=== PATIENT | female | born 2000 | race Caucasian/White ===

== ENCOUNTER 2023-06-02 12:47 | Outpatient (CLI) | payer BC, SELFPAY ==
--- NOTE | 2023-06-02 13:00 | CRLHL7_ITS ---
For Patients: As a result of the Century Cures Act, medical imaging exams and procedure reports are released immediately into your electronic medical record. You may view this report before your referring provider. If you have questions, please contact your health care provider. Indication: Chronic sinusitis, nasal septum deviation Technique: CT of the paranasal sinuses without contrast. Coronal and sagittal reformatted images. Bone and soft tissue algorithms. Comparison: None. Findings: Frontal sinuses: Mild mucosal thickening in the right inferior frontal sinus. The left frontal sinus is clear.. Ethmoid air cells: The ethmoid air cells are clear. Symmetric depths of the olfactory fossa. The anterior ethmoidal arteries are well-covered by bone. Sphenoid sinuses: The sphenoid sinuses and ostia are clear. No optic canal or carotid canal dehiscence. Maxillary sinuses: Minimal polypoid mucosal thickening in the right maxillary sinus. The osteomeatal units are clear. Nasal cavity: Leftward deviation of the nasal septum with septal spur that contacts the left inferior turbinate. No babak bullosa. No paradoxical turbinates. Secretions or crusting noted in the nasal vestibule airway. Skullbase, maxilla, TMJ: No lytic or blastic osseous lesions. No periapical tooth lucencies. Mastoid air cells are clear. Orbital contents: Unremarkable Imaged intracranial contents: Unremarkable Imaged soft tissues structures: Unremarkable IMPRESSION: 1. Mild mucosal thickening in the right inferior frontal sinus. Minimal polypoid mucosal thickening in the right maxillary sinus. The ethmoid air cells and sphenoid sinuses are clear 2. Leftward deviation of the nasal septum with septal spur that contacts the left inferior turbinate. 3. Secretions or crusting noted in the nasal vestibule airway. Please note that all CT scans at this facility use dose modulation, iterative reconstruction, and/or weight-based dosing when appropriate to reduce radiation dose to as low as reasonably achievable. Dictated by Chan Cuevas MD @ 06/03/2023 3:41:16 PM (Electronically Signed)
== END 2023-06-02 12:48 | disposition home or self-care (01) ==
LOC: CT 12:49
PROVIDERS: Visit Provider Otolaryngology
DX: J32.9 Chronic sinusitis, unspecified (principal); J34.2 Deviated nasal septum; J32.0 Chronic maxillary sinusitis
CPT/HCPCS: 70486

== ENCOUNTER 2023-10-23 08:53 | Day surgery (SDC) | payer BC, SELFPAY ==
[2023-10-23] VITALS (14 sets, daily range): BP systolic 109–123; BP diastolic 63–89; PULSE 71–100; RESP 12–20; TEMP 36.4–36.9; O2SAT 97–100; BMI 23.6
--- OUTSIDE RECORDS SUMMARY | 2023-10-23 08:56 | XMS_ITS | Clinical Summary ---
Author Name Unknown Organization [facility] Address [address] [place] [address] Care Team Providers Care Independent Crop Consultant Name Role Phone [facility] Primary Ca re Provider Allergies Active Allergy Reactions Criticality Noted Date Comments Penicillins Rash Low 11/28/2019 Medications Hospital, Clinic, or Other Facility Administered Medication Ordered Dose Route Frequency Start Date End Date Status medroxyPROGESTERone (DEPO-PROVERA) injection 150 mgIndications:Depo-Prove ra contraceptive status 150 mg IM EVERY 3 MONTHS 02/08/2020 Active Active Problems Problem Noted Date Diagnosed Date Nexplanon removal 02/08/2020 Depo-Provera contraceptive status 02/08/2020 Family history of blood clots 02/08/2020 Recurrent AOM (acute otitis media) 07/19/2015 Eczema 09/29/2014 Resolved Problems Problem Noted Date Diagnosed Date Resolved Date Infective otitis externa 01/23/201409/2015 Overview: Problem list name updated by automated process. Provider to review Routine infant or child health check 03/25/2006 07/19/2015 Immunizations Name Administration Dates Next Due Comvax (HIB/HepB) 2002,2002 DTAP (<7y) 08/03/2007, 3,2002,2001 DTP-Hib 06/19/2003 HIB (PRP-T) 2002 HPV9 05/20/2017,11/14/2016 HepB 2002 Influenza Vaccine >6 months,quad, PF 07/05/2018 MMR 08/03/2007,03/20/2003 Meningococcal ACWY (Menactra??) 02/08/2020,12/30 Pneumococcal (PCV 7) 2002,2002,05/11 Poliovirus, inactivated (IPV) 08/03/2007 ,03/20/2003,2002,2001 TDAP Vaccine (Adacel) 12/30/2013 Varicella 08/03/2007,06/19/2003 Family History Medical History Relation Comments Family History Negative Father Circulatory Maternal Grandfather Blood Clot Hypertension Maternal Grandfather Circulatory Mother Blood Clot 2007 Depression Mother Relation Status Comments Brother Alive Father Alive Maternal Grandfather Alive Maternal Grandmother Alive Mother Alive Paternal Grandfather Alive Paternal Grandmother Alive Social History Tobacco Use Types Packs/Day Years Used Date Smoking Tobacco: Never Smokeless Tobacco: Never Alcohol Use Standard Drinks/Week Comments No 0 (1 standard drink = 0.6 oz pur e alcohol) PHQ-2 Answer Date Recorded PHQ-2 Score 0 02/08/2020 Adolescent Education Answer Date Record ed Getting School Help Needed Not on file 03/31 Sex and Gender Information Value Date Recorded Sex Assigned at Not on file Gender Identity Not on file Sexual Orientation Not on file Last Filed Vital Signs Vital Sign Reading Time Taken Comments Blood Pressure 118/86 02/08/2020 2:52 PM CDT Pulse 90 02/08/2020 2:52 PM CDT Temperature 36.7 ??C (98 ??F) 02/08/2020 2:52 PM CDT Respiratory Rate 12 02/08/2020 2:52 PM CDT Oxygen Saturation 99% 10/19/2018 3:48 PM CDT Inhaled Oxygen Concentration - - Weight 51.3 kg (113 lb) 02/08/2020 2:52 PM CDT Height 164.5 cm (5' 4.75) 10/19/2018 3:48 PM CD T Body Mass Index 18.95 10/19/2018 3:48 PM CDT Plan of Treatment Not on file Care Teams Independent Crop Consultant Relationship Specialty Start Date End Date [facility] [address] [place] [address] PCP - General 05/12/17
--- OUTSIDE RECORDS SUMMARY | 2023-10-23 08:56 | XMS_ITS | Encounter Summary ---
Author Name Unknown Organization [facility] Address [address] [place] [address] Care Team Providers Care Program Supervisor Name Role Phone Kar Amezquita MD Primary Car e Provider [facility] Primary Ca re Provider Laxmi Al Mary PA-C Unavailable Laxmi Al Mary PA-C Unavailable Misty Leblanc APRN [employer] Unavailable + Laxmi Al Mary PA-C Unavailable Cirilo Ortiz PA-C Unavailable + Mega Colin MD Unavailable + Cirilo Ortiz PA-C Unavailable + Dayanna Maria APRN [employer] Unavailable Unavail able Cirilo Ortiz PA-C Unavailable + Dayanna Maria APRN [employer] Unavailable Unavail able Cirilo Ortiz PA-C Unavailable + Cirilo Ortiz PA-C Unavailable + Dayanna Maria APRN, CNP Unavailable Unavail able Reason for Visit * Reason Onset Date Comments Outreach 10/07/2012 Encounter Details Date Type Department Care Team (Late st Contact Info) Description 10/07/2012 Telephone [facility] [address] [place] [address] Kar Amezquita MD [facility] [address] [place] [address] Outreach Social History Tobacco Use Types Packs/Day Years Used Date Smoking Tobacco: Never Smokeless Tobacco: Never Alcohol Use Standard Drinks/Week Comments No 0 (1 standard drink = 0.6 oz pur e alcohol) Sex and Gender Information Value Date Recorded Sex Assigned at Not on file Gender Identity Not on file Sexual Orientation Not on file documented as of this encounter Miscellaneous Notes * Telephone Encounter - Herbie Barrera - 11/01/2012 5:19 PM CDT 11/01/2012 Call Regarding Reattribution [facility] Attempt 2 Message on answering machine Comments: * Telephone Encounter - Usha Ayala - 10/07/2012 2:22 PM CDT 10/07/2012 Call Regarding ReattributionWCC Attempt 1 Message on answering machine Comments: documented in this encounter Plan of Treatment Not on file documented as of this encounter Visit Diagnoses Not on filedocumented in this encounter Care Teams Program Supervisor Relationship Specialty Start Date End Date Kar Amezquita MD [facility] [address] [place] [address] PCP - General 02 08/10/16 [facility] [address] [place] [address] PCP - General 05/12/17 Laxmi Al PA-C [address] [address] [facility] [place] [address] PCP - Assigned PCP 11/23/16 08/17/18 Laxmi Al PA-C [address] [place] [address] Assigned PCP 11/23/16 10/23/18 Misty Leblanc APRN [employer] [address] [place] [address] Assigned PCP 10/24/18 10/22/19 Laxmi Al PA-C [address] [place] [address] Assigned PCP 10/23/19 10/29/19 Cirilo Ortiz PA-C [address] [place] [address] Assigned PCP 10/30/19 12/03/19 [place] [address] [place] [address] Assigned PCP 12/04/19 02/04/20 Cirilo Ortiz PA-C [address] [place] [address] Assigned PCP 02/05/20 10/20/20 Dayanna Maria APRN [employer] Assigned PCP 10/21/20 02/09/21 Cirilo Ortiz PA-C [address] [place] [address] Assigned PCP 02/10/21 06/22/21 Dayanna Maria APRN [employer] Assigned PCP 06/23/21 08/10/21 Cirilo Ortiz PA-C [address] [place] [address] Assigned PCP 08/11/21 05/30/22 Cirilo Ortiz PA-C [address] [place] [address] Assigned PCP 08/09/22 10/24/22 Dayanna Maria APRN [employer] Assigned PCP 10/25/22 02/13/23 documented as of this encounter
--- OUTSIDE RECORDS SUMMARY | 2023-10-23 08:56 | XMS_ITS | Referral Summary ---
Author Name Unknown Organization [facility] Address [address] [place] [address] Care Team Providers Care Human Factors Specialist Name Role Phone [facility] - [facility] Primary Ca re Provider Allergies Active Allergy [...] ,03/20/2003,2002,2001 TDAP Vaccine (Adacel) 12/30/2013 Varicella 08/03/2007,06/19/2003 Social History Tobacco Use Types Packs/Day Years [...] of Treatment Not on file Care Teams Human Factors Specialist Relationship Specialty Start Date End Date [facility] [address] [place] [address] PCP - General 05/12/17
[2023-10-23 09:37] LABS: Ur HCG Qualitative* Negative (Negative)
[2023-10-23] MEDS: SODIUM CHLORIDE 0.9 % (FLUSH) 10 ML SYRINGE IVF (09:45)
[2023-10-23] MEDS: LACTATED RINGERS 1000 ML 1,000 ML 100 ML IV (09:45)
[2023-10-23] MEDS: BUPIVACAINE 0.5 %/EPI 1:200K 30 ML INJECTION (11:00)
[2023-10-23] MEDS: MUPIROCIN 1 GM PACKET 1 APPLIC TOPICAL (11:00)
[2023-10-23] MEDS: COCAINE HCL 4 % 4 ML SOLUTION NOSTRIL-B (11:00)
[2023-10-23] MEDS: AYR SALINE NASAL GEL 1 APPLIC NOSTRIL-B (11:02)
--- NOTE | 2023-10-23 11:02 | W.ANESCHARGE ---
Anesthesia Charges Start Date/Time Anesthesia Start Date: 10/23/23 Anesthesia Start Time: 10:47 Stop Date/Time Anesthesia Stop Date: 10/23/23 Anesthesia Stop Time: 11:40
--- NOTE | 2023-10-23 11:57 | W.ANESCHARGE ---
Anesthesia Charges Start Date/Time Anesthesia Start Date: 10/23/23 Anesthesia Start Time: 10:47 Stop Date/Time Anesthesia Stop Date: 10/23/23 Anesthesia Stop Time: 11:40
--- NOTE | 2023-10-23 12:16 | W.PM.ENTPROC ---
Procedure Note Date of procedure: 10/23/23 Procedure: Preop diagnosis deviated septum, nasal headache, right middle turbinate babak bullosa, right inferior turbinate hypertrophy, nasal obstruction Postop diagnosis same Procedure nasal septoplasty, submucous partial resection right inferior turbinate, endoscopic partial resection right middle turbinate babak bullosa Under general trach anesthesia patient was prepped draped usual fashion the nose injected and decongested. A right hemitransfixion incision was made. Left anterior and posterior tunnels were created. A vertical incision is made through the cartilage and a right posterior tunnel created. The anterior premaxillary wing was redundant cartilaginous was removed the 15 blade but there was a normal amount of cartilage and bone for dorsal and tip support. There is a small anterior mucosal tear that was repaired with 2 4-0 chromic sutures. The posterior deflected portions of septal bone resected a large piece trimmed returned to the posterior intraseptal space. The hemitransfixion was closed with 2 4-0 chromic sutures. A stab incision was made in the anterior of the right inferior turbinate a tunnel created with a [place] dissector. The babak bone was outfractured and a conservative anterior submucous resection performed with Angus forceps. The Coblation was then used for hemostasis and to cauterize the inferior 10% intramurally. The left middle turbinate was not hypertrophic it had been compressed by the septum. The right middle turbinate babak bullosa was incised superiorly Lat laterally adjacent to the hollow portion. The bone was then infractured the turbinate crushed with the [place] forceps. Silastic stents were secured with 3-0 nylon have. Merocel packing coated in Bactroban was placed in each side the nose. The patient procedure was taken recovery in satisfactory condition. Blood loss was less than 25 mL. Surgeon: Shelton Epperson MD
== END 2023-10-23 13:44 | disposition home or self-care (01) ==
PROVIDERS: Anesthesiology; Visit Provider Otolaryngology
PROC: (CPT 31231; principal; 2023-10-23 10:15)
DX: J34.2 Deviated nasal septum (principal); J34.3 Hypertrophy of nasal turbinates; R51.9 Headache, unspecified
CPT/HCPCS: 30520; 30140; 31240; 00160; 81025; A9270; J0330; J1100; J2405; J2704; J3010; J3490; J7120